=== PATIENT | female | born 2000 | race Caucasian/White ===

== ENCOUNTER 2023-05-01 20:53 | Emergency (ER) | payer MEDICAID ==
[~2023-05-01] VITALS: Ht 162.6 cm; Wt 70.5 kg
[~2023-05-01 20:53] MED LIST: METH500T PO
[2023-05-01] MEDS ORDERED: HYDROcodone/acetaminophen 10/325mg tab PO ONE (20:55)
[2023-05-01 21:14] VITALS: BP 119/74; PULSE 99; TEMP 99; O2SAT 98
[2023-05-01 21:19] VITALS: RESP 17
[2023-05-01] MEDS ORDERED: HYDR-3973 PO (21:38)
[2023-05-01] MEDS ORDERED: NAPR-56 PO (21:38)
--- NOTE | 2023-05-01 22:15 | NUR ---
pt seen, tx and d/c by provider. no assigned nurse or room.
[2023-05-02] MEDS ORDERED: HYDR-3972 PO (17:57)
[2023-05-02] MEDS ORDERED: NAPR-56 PO (17:57)
[2023-05-02] MEDS ORDERED: HYDR-3973 PO (18:02)
[2023-05-02] MEDS ORDERED: NAPR-996 PO (18:02)
== END 2023-05-01 22:16 | disposition home or self-care (01) ==
LOC: ER 20:54
DX: S60.221A Contusion of right hand, initial encounter (principal); G89.29 Other chronic pain; F12.90 Cannabis use, unspecified, uncomplicated; Z72.89 Other problems related to lifestyle; Z79.899 Other long term (current) drug therapy; W54.1XXA Struck by dog, initial encounter; Y93.89 Activity, other specified; Y92.89 Other specified places as the place of occurrence of the external cause; Y99.8 Other external cause status
CPT/HCPCS: 73130; 99283